=== PATIENT | female | born 1960 | race Two or more races ===

== ENCOUNTER 2023-01-14 21:10 | Emergency (ER) | payer MEDICAID, OTHER ==
[~2023-01-14] VITALS: Ht 162.6 cm; Wt 62.7 kg
[2023-01-14] MEDS ORDERED: ONDANSETRON ODT 4 MG TAB PO ONE (21:30)
[2023-01-14] MEDS ORDERED: HYDROcodone-ACET 5/325MG TAB PO ONE (21:30)
[2023-01-14 22:41] VITALS: BP 133/91
[2023-01-14] MEDS ORDERED: ZOFR4T PO (23:00)
[2023-01-14] MEDS ORDERED: HYDR-4902 PO ×2 (23:00)
[2023-01-15] MEDS ORDERED: HYDR-4902 PO (00:15)
== END 2023-01-15 00:41 | disposition home or self-care (01) ==
LOC: ER 21:10 → EDBD 21:10 → ER 23:44
DX: S82.61XA Displaced fracture of lateral malleolus of right fibula, initial encounter for closed fracture (principal); E78.5 Hyperlipidemia, unspecified; X50.1XXA Overexertion from prolonged static or awkward postures, initial encounter; Y93.89 Activity, other specified; Y92.89 Other specified places as the place of occurrence of the external cause; Y99.8 Other external cause status
CPT/HCPCS: 73600; 99283; Q0162

== ENCOUNTER 2023-01-17 20:23 | Emergency (ER) | payer MEDICAID ==
[~2023-01-17] VITALS: Ht 170.2 cm; Wt 62.7 kg
[~2023-01-17 20:23] MED LIST: HYDR-4902 PO; ZOFR4T PO
[2023-01-17 21:10] VITALS: BP 118/66
== END 2023-01-18 00:35 | disposition left against medical advice (07) ==
LOC: ER 20:23
DX: M79.604 Pain in right leg (principal); Z76.0 Encounter for issue of repeat prescription; Z53.21 Procedure and treatment not carried out due to patient leaving prior to being seen by health care provider

== ENCOUNTER 2023-01-24 21:55 | Emergency (ER) | payer MEDICAID ==
[~2023-01-24] VITALS: Ht 170.2 cm; Wt 62.0 kg
[2023-01-25] MEDS ORDERED: HYDR-4902 PO (01:23)
[2023-01-25 01:35] VITALS: BP 159/78
== END 2023-01-25 01:38 | disposition home or self-care (01) ==
LOC: ER 21:55
DX: S82.61XA Displaced fracture of lateral malleolus of right fibula, initial encounter for closed fracture (principal); E78.5 Hyperlipidemia, unspecified; Z76.0 Encounter for issue of repeat prescription; Z88.6 Allergy status to analgesic agent; X58.XXXA Exposure to other specified factors, initial encounter; Y93.89 Activity, other specified; Y92.89 Other specified places as the place of occurrence of the external cause; Y99.8 Other external cause status
CPT/HCPCS: 29515; 73610; 73630